=== PATIENT | male | born 1975 | race Caucasian/White ===

== ENCOUNTER 2017-09-10 10:30 | Emergency (ER) | payer BC ==
[~2017-09-10] VITALS: Ht 167.6 cm; Wt 75.7 kg
[2017-09-10 10:34] VITALS: TEMP 36.9; Ht 167.6 cm; Wt 75.7 kg
--- NOTE | 2017-09-10 10:46 | EMERGENCY ROOM VISIT NOTE ---
History Report prepared by Herman: Wilbert Castro Under the Supervision of: Dr. Galen Reza M.D. First contact with patient: 10:34 Chief Complaint: HEAD INJURY (MINOR) Stated Complaint: HEAD INJURY History of Present Illness The patient is a 42 year old male who presents to the Emergency Room via EMS with complaints of a sudden sledding accident that occurred prior to arrival this morning. Per EMS, the patient was sledding with his son, and they hit a tree. The patient states that he probably lost consciousness, and is still "foggy" regarding the impact. He says that he has had persistent back pain and a small headache ever since the accident. The patient denies any neck pain, chest pain, abdominal pain, shortness of breath, or leg pain. He notes no chronic medical conditions, and is not on any blood thinners. 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 Review of Systems See HPI for pertinent positives & negatives. A total of 10 systems reviewed and were otherwise negative. Past Medical & Surgical Medical Problems: (1) No chronic diseases present Family History No pertinent family history Social History Smoking Status: Never Smoker Marital Status: Housing Status: lives with family Occupation Status: employed Current/Historical Medications Scheduled Lidocaine (Lidocaine), 5 % TD DAILY Scheduled PRN Oxycodone/Acetaminophen 5MG/325MG (Percocet 5MG/325MG), 1-2 TAB PO Q4H PRN for Pain Allergies Coded Allergies: No Known Allergies (Unverified , 09/10/17) Physical Exam Vital Signs Date Time Temp Pulse Resp B/P (MAP) Pulse Ox O2 Delivery O2 Flow Rate FiO2 09/10/17 12:30 75 20 138/78 98 Room Air 09/10/17 11:30 89 16 133/89 98 Room Air 09/10/17 10:35 99 09/10/17 10:34 36.9 95 18 131/87 96 Room Air Physical Exam GENERAL: Patient is a healthy-appearing well-nourished 42 year old male. Cervical collar in place. HEAD: Normocephalic atraumatic EYES: Ocular movements intact pupils equal and react to light OROPHARYNX mucous membranes are moist no exudates present no erythema or edema present NECK: Supple no nuchal rigidity CHEST: Good equal expansion LUNGS: Clear and equal to auscultation CARDIAC: Normal S1 and S2 ABDOMEN: Soft nontender no guarding BACK: Low back pain at L5 level. No midline tenderness to neck or thoracic spine. EXTREMITIES: No pain upon palpation normal muscle strength in all groups no clubbing cyanosis or edema NEURO: Patient is following commands and answering questions appropriately. Alert and oriented x3 Cranial Nerves 2-12 grossly intact Medical Decision & Procedures ER Provider Diagnostic Interpretation: X-ray results as stated below per interpretation by me and the radiologist: CT OF THE HEAD WITHOUT CONTRAST CLINICAL HISTORY: Pt +LOC, sled accident COMPARISON STUDY: No previous studies for comparison. TECHNIQUE: Helical axial images of the head were obtained without IV contrast. Automated exposure control was utilized for the study. A dose lowering technique was utilized adhering to the principles of ALARA. FINDINGS: No acute intracranial hemorrhage, midline shift or mass effect is present. Ventricular system is normal. Basilar cisterns are patent. No extra-axial collections are present. Pimentel-white differentiation is maintained. There is no calvarial fracture. IMPRESSION: 1. No acute intracranial findings. 2. No calvarial fracture. Electronically signed by: Ck Taylor M.D. 09/10/2017 11:16 AM Dictated Date/Time: 09/10/2017 11:14 AM THORACIC SPINE WITHOUT CLINICAL HISTORY: Trauma. COMPARISON STUDY: No previous studies for comparison. FINDINGS: There is mild loss of height of the superior endplates of T2, T3, T4 and T6. No definite acute fracture within the thoracic spine is noted. There are acute nondisplaced fractures of the posterior right fourth, fifth and sixth ribs. No pneumothorax is shown within visualized portions of the chest. IMPRESSION: 1. Acute nondisplaced fractures of the posterior right fourth, fifth and sixth ribs. 2. Slight loss of height of the superior endplates of T2, T3, T4 and T6. These represent age indeterminate compression deformities. No extension into the posterior elements. No retropulsion. Electronically signed by: Ck Taylor M.D. 09/10/2017 11:32 AM Dictated Date/Time: 09/10/2017 11:20 AM PELVIS 1 OR 2 VIEW ROUTINE CLINICAL HISTORY: Trauma. COMPARISON STUDY: No previous studies for comparison. FINDINGS: The sacroiliac joints and symphysis pubis are intact. No acute fracture within the pelvis or hips is identified. IMPRESSION: No acute fracture within the pelvis or hips. Electronically signed by: Ck Taylor M.D. 09/10/2017 11:56 AM Dictated Date/Time: 09/10/2017 11:55 AM LUMBAR SPINE WITHOUT CLINICAL HISTORY: Trauma. COMPARISON STUDY: No previous studies for comparison. FINDINGS: Alignment of the lumbar spine is anatomic. Vertebral body heights are maintained. There is no acute lumbar spine fracture. Facet joints are intact. Sacroiliac joints are intact. Disc spaces are preserved. IMPRESSION: No acute lumbar spine fracture or subluxation. Electronically signed by: Ck Taylor M.D 09/10/2017 11:34 AM Dictated Date/Time: 09/10/2017 11:32 AM CHEST ONE VIEW PORTABLE CLINICAL HISTORY: Trauma. COMPARISON STUDY: No previous studies for comparison. FINDINGS: There is no pneumothorax or pleural effusion. No airspace opacities are identified. Cardiomediastinal silhouette is unremarkable. An acute nondisplaced posterior right fifth rib fracture is better depicted on the CT of the thoracic spine. The additional fourth and sixth right sided rib fractures are not well visualized on this exam. IMPRESSION: 1. No pneumothorax. 2. Acute nondisplaced posterior right fifth rib fracture which is better depicted on the CT of the thoracic spine. The additional right fourth and sixth rib fractures shown on that exam are not well visualized on this study due to technique. Electronically signed by: Ck Taylor M.D 09/10/2017 11:55 AM Dictated Date/Time: 09/10/2017 11:[address] OF THE CERVICAL SPINE WITHOUT CONTRAST CLINICAL HISTORY: Pt c/o sleding accident COMPARISON STUDY: No previous studies for comparison. TECHNIQUE: Helical axial images of the cervical spine were obtained without IV contrast. Sagittal and coronal reconstructions were viewed. A dose lowering technique was utilized adhering to the principles of ALARA. FINDINGS: Alignment of the cervical spine is anatomic. The craniocervical junction is intact. There is no acute fracture. There is no prevertebral edema. IMPRESSION: No acute cervical spine fracture or subluxation. Electronically signed by: Ck Taylor M.D. 09/10/2017 11:19 AM Dictated Date/Time: 09/10/2017 11:16 AM Medications Administered Medications (Trade) Dose Ordered Sig/Dillon Route Start Time Stop Time Status Last Admin Dose Admin Ketorolac Tromethamine (Toradol Inj) 30 mg NOW STAT IV 09/10/17 11:24 09/10/17 11:25 DC 09/10/17 11:30 30 MG Lidocaine (Lidoderm Patch 5%) 1 patch NOW STAT TD 09/10/17 11:42 09/10/17 11:43 DC 09/10/17 12:05 1 PATCH Oxycodone/ Acetaminophen (Percocet 5/ 325MG Home Pack) 1 homepack UD ONCE PO 09/10/17 12:30 09/10/17 12:31 DC 09/10/17 12:32 1 HOMEPACK ED Course 1038: Past medical records reviewed. The patient was evaluated in room B4B. A complete history and physical examination was performed. 1124: Ordered Toradol Inj 30 mg IV. 1142: Ordered Lidoderm Patch 5% 1 patch TD. 1216: Upon reexamination the patient is resting. I performed a FAST exam on the patient which was normal. I discussed results and treatment plan with the patient. He verbalizes agreement and understanding. The patient is ready for discharge. 1230: Ordered Percocet 5/325MG Home Pack 1 homepack PO. Medical Decision Differential diagnosis: Etiologies such as fracture, dislocation, intra-abdominal, pneumothorax, intrathoracic , intracranial, neurologic, as well as other traumatic pathologies were entertained. This is a 42-year-old male who presents with a loss of consciousness after sledding accident. He is also complaining of back pain. Patient denies any headache or head pain. He was sent for CAT scan of the head which did not show any acute process. The patient's spine was imaged due to the back pain. He has fractures at ribs 45 and 6. I talked to him about the compression fractures in his back. He believes he may have injured these when he was young. He has no evidence of pneumothorax. A bedside FAST exam showed no evidence of free fluid. The patient was given Toradol here in the emergency department. Repeat examination revealed improvement patient's symptoms. I do feel that the patient can be safely discharged home for follow-up this primary care physician. Patient and family were in agreement with the treatment plan. Medication Reconcilliation Current Medication List: was personally reviewed by me Blood Pressure Screening Patient's blood pressure: Elevated blood pressure Blood pressure disposition: Elevated BP felt to be situational Impression Primary Impression: Rib fractures Additional Impression: Closed head injury Scribe Attestation The scribe's documentation has been prepared under my direction and personally reviewed by me in its entirety. I confirm that the note above accurately reflects all work, treatment, procedures, and medical decision making performed by me. Departure Information Dispostion Home / Self-Care Prescriptions Lidocaine (Lidocaine) 1 Patch Tdsy 5 % TD DAILY, #30 PATCH Prov: Galen Reza MD 09/10/17 Oxycodone/Acetaminophen 5MG/325MG (PERCOCET 5MG/325MG) Tab 1-2 TAB PO Q4H Y for Pain, #14 TAB Prov: Galen Reza MD 09/10/17 Referrals No Doctor, Assigned Forms HOME CARE DOCUMENTATION FORM, IMPORTANT VISIT INFORMATION, School Instructions, Work Instructions Patient Instructions ED Fx Comp Vertebral, ED Head Injury Closed, Fx Rib, My [facility] Additional Instructions Use Lidoderm patch daily Take 600 mg Ibuprofen for the pain Take Percocet for breakthrough pain Use incentive spirometer every 15 minutes Follow up with Ortho spine this week You received narcotic or benzodiazepene medication while in the emergency room today. This is an addictive medication that may cause drowziness as well as constipation. Do not drive, operate heavy machinery, or drink alcohol under the influence of this medication. Take 600 mg Ibuprofen every 6 hours Take Percocet for breakthrough pain You have been examined and treated today on an emergency basis only. This is not a substitute for, or an effort to provide, complete comprehensive medical care. It is impossible to recognize and treat all injuries or illnesses in a single emergency department visit. It is therefore important that you follow up closely with your PCP. Call as soon as possible for an appointment. Thank you for your time and consideration. I look forward to speaking with you again soon. Please don't hesitate to call us if you have any questions. Problem Qualifiers Primary Impression: Rib fractures Encounter type: initial encounter Rib fracture type: multiple ribs Fracture type: closed Laterality: right Qualified Codes: S22.41XA - Multiple fractures of ribs, right side, initial encounter for closed fracture Additional Impression: Closed head injury Encounter type: initial encounter Qualified Codes: S09.90XA - Unspecified injury of head, initial encounter
--- NOTE | 2017-09-10 11:17 | DIAGNOSTIC IMAGING REPORT ---
CT OF THE HEAD WITHOUT CONTRAST CLINICAL HISTORY: Pt +LOC, sled accident COMPARISON STUDY: No previous studies for comparison. TECHNIQUE: Helical axial images of the head were obtained without IV contrast. Automated exposure control was utilized for the study. A dose lowering technique was utilized adhering to the principles of ALARA. FINDINGS: No acute intracranial hemorrhage, midline shift or mass effect is present. Ventricular system is normal. Basilar cisterns are patent. No extra-axial collections are present. Pimentel-white differentiation is maintained. There is no calvarial fracture. IMPRESSION: 1. No acute intracranial findings. 2. No calvarial fracture. Electronically signed by: Ck Taylor M.D. 09/10/2017 11:16 AM Dictated Date/Time: 09/10/2017 11:14 AM
--- NOTE | 2017-09-10 11:20 | DIAGNOSTIC IMAGING REPORT ---
CT OF THE CERVICAL SPINE WITHOUT CONTRAST CLINICAL HISTORY: Pt c/o sleding accident COMPARISON STUDY: No previous studies for comparison. TECHNIQUE: Helical axial images of the cervical spine were obtained without IV contrast. Sagittal and coronal reconstructions were viewed. A dose lowering technique was utilized adhering to the principles of ALARA. FINDINGS: Alignment of the cervical spine is anatomic. The craniocervical junction is intact. There is no acute fracture. There is no prevertebral edema. IMPRESSION: No acute cervical spine fracture or subluxation. Electronically signed by: Ck Taylor M.D. 09/10/2017 11:19 AM Dictated Date/Time: 09/10/2017 11:16 AM
[2017-09-10] MEDS ORDERED: KETOROLAC TROMETHAMINE 30 MG/ML VIAL IV STA (11:24)
--- NOTE | 2017-09-10 11:33 | DIAGNOSTIC IMAGING REPORT ---
THORACIC SPINE WITHOUT CLINICAL HISTORY: Trauma. COMPARISON STUDY: No previous studies for comparison. FINDINGS: There is mild loss of height of the superior endplates of T2, T3, T4 and T6. No definite acute fracture within the thoracic spine is noted. There are acute nondisplaced fractures of the posterior right fourth, fifth and sixth ribs. No pneumothorax is shown within visualized portions of the chest. IMPRESSION: 1. Acute nondisplaced fractures of the posterior right fourth, fifth and sixth ribs. 2. Slight loss of height of the superior endplates of T2, T3, T4 and T6. These represent age indeterminate compression deformities. No extension into the posterior elements. No retropulsion. Electronically signed by: kC Taylor M.D. 09/10/2017 11:32 AM Dictated Date/Time: 09/10/2017 11:20 AM
--- NOTE | 2017-09-10 11:36 | DIAGNOSTIC IMAGING REPORT ---
LUMBAR SPINE WITHOUT CLINICAL HISTORY: Trauma. COMPARISON STUDY: No previous studies for comparison. FINDINGS: Alignment of the lumbar spine is anatomic. Vertebral body heights are maintained. There is no acute lumbar spine fracture. Facet joints are intact. Sacroiliac joints are intact. Disc spaces are preserved. IMPRESSION: No acute lumbar spine fracture or subluxation. Electronically signed by: Ck Taylor M.D. 09/10/2017 11:34 AM Dictated Date/Time: 09/10/2017 11:32 AM
[2017-09-10] MEDS ORDERED: LIDODERM (LIDOCAINE) PATCH 5% TD STA (11:42)
--- NOTE | 2017-09-10 11:56 | DIAGNOSTIC IMAGING REPORT ---
CHEST ONE VIEW PORTABLE CLINICAL HISTORY: Trauma. COMPARISON STUDY: No previous studies for comparison. FINDINGS: There is no pneumothorax or pleural effusion. No airspace opacities are identified. Cardiomediastinal silhouette is unremarkable. An acute nondisplaced posterior right fifth rib fracture is better depicted on the CT of the thoracic spine. The additional fourth and sixth right sided rib fractures are not well visualized on this exam. IMPRESSION: 1. No pneumothorax. 2. Acute nondisplaced posterior right fifth rib fracture which is better depicted on the CT of the thoracic spine. The additional right fourth and sixth rib fractures shown on that exam are not well visualized on this study due to technique. Electronically signed by: Ck Taylor M.D. 09/10/2017 11:55 AM Dictated Date/Time: 09/10/2017 11:53 AM
--- NOTE | 2017-09-10 11:57 | DIAGNOSTIC IMAGING REPORT ---
PELVIS 1 OR 2 VIEW ROUTINE CLINICAL HISTORY: Trauma. COMPARISON STUDY: No previous studies for comparison. FINDINGS: The sacroiliac joints and symphysis pubis are intact. No acute fracture within the pelvis or hips is identified. IMPRESSION: No acute fracture within the pelvis or hips. Electronically signed by: Ck Taylor M.D. 09/10/2017 11:56 AM Dictated Date/Time: 09/10/2017 11:55 AM
[2017-09-10] MEDS ORDERED: OXYC-57 PO (12:19)
[2017-09-10 12:30] VITALS: BP 138/78; PULSE 75; O2SAT 98
[2017-09-10] MEDS ORDERED: LDDP5 TD (12:30)
[2017-09-10] MEDS ORDERED: PERCOCET HOME PACK PO ONE (12:30)
== END 2017-09-10 12:39 | disposition home or self-care (01) ==
LOC: C.EDB 10:35
DX: S22.41XA Multiple fractures of ribs, right side, initial encounter for closed fracture (principal); S06.9X9A Unspecified intracranial injury with loss of consciousness of unspecified duration, initial encounter; V00.222A Sledder colliding with stationary object, initial encounter; Y93.23 Activity, snow (alpine) (downhill) skiing, snowboarding, sledding, tobogganing and snow tubing; Z87.81 Personal history of (healed) traumatic fracture; R03.0 Elevated blood-pressure reading, without diagnosis of hypertension